=== PATIENT | female | born 1995 | race Caucasian/White ===

== ENCOUNTER 2017-08-03 12:05 | Emergency (ER) | payer OTHER, BC ==
[2017-08-03 12:07] VITALS: BP 131/65; PULSE 102; RESP 20; TEMP 97.5; O2SAT 100
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
[2017-08-03] MEDS ORDERED: IBUP-232 PO (15:20)
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
[2017-08-03 16:27] VITALS: PULSE 84; RESP 16
== END 2017-08-03 16:34 | disposition home or self-care (01) ==
LOC: NEPK 12:05
DX: R07.89 Other chest pain (principal); V47.5XXA Car driver injured in collision with fixed or stationary object in traffic accident, initial encounter; Y92.410 Unspecified street and highway as the place of occurrence of the external cause
CPT/HCPCS: 71020; 99283

== ENCOUNTER 2018-02-21 00:27 | Emergency (ER) | payer BC, OTHER ==
[~2018-02-21] VITALS: Ht 157.5 cm; Wt 71.0 kg
[~2018-02-21 00:27] MED LIST: IBUP-232 PO
[2018-02-21 00:44] VITALS: BP 131/70; PULSE 69; RESP 16; TEMP 97.9; O2SAT 100
[2018-02-21] MEDS ORDERED: PANTOPRAZOLE SODIUM 40 MG VIAL IV PUSH ONE (04:00)
[2018-02-21 04:09] VITALS: RESP 15; O2SAT 100
[2018-02-21 04:26] LABS: AUTOMATED NEUTROPHIL # 5.3 TH/MM3 (1.8-7.7); BASOPHIL # 0.1 TH/MM3 (0-0.2); BASOPHIL % 0.6 % (0.0-2.0); EOSINOPHIL # 0.1 TH/MM3 (0-0.4); EOSINOPHIL % 1.3 % (0.0-4.0); HEMATOCRIT 37.9 % (35.0-46.0); HEMOGLOBIN 12.5 GM/DL (11.6-15.3); LYMPH % 38.2 % (9.0-44.0); LYMPHOCYTE # 3.8 TH/MM3 (1.0-4.8); MEAN CELL VOLUME 86.2 FL (80.0-100.0); MEAN CORPUSCULAR HEMOGLOBIN 28.4 PG (27.0-34.0); MEAN CORPUSCULAR HGB CONC 32.9 % (32.0-36.0); MEAN PLATELET VOLUME 9.7 FL (7.0-11.0); MONO % 6.8 % (0.0-8.0); MONOCYTE # 0.7 TH/MM3 (0-0.9); NEUT % 53.1 % (16.0-70.0); PLATELET COUNT 233 TH/MM3 (150-450); RED CELL DISTRIBUTION WIDTH 13.4 % (11.6-17.2)
[2018-02-21 04:48] LABS: ALBUMIN 3.9 GM/DL (3.4-5.0); AST (GOT) 10 U/L (16-38); BICARBONATE 24.4 MEQ/L (21.0-32.0); BLOOD UREA NITROGEN 12 MG/DL (7-18); CALCIUM 9.1 MG/DL (8.5-10.1); CHLORIDE 107 MEQ/L (98-107); CREATININE 0.67 MG/DL (0.50-1.00); GLOMERULAR FILTRATION RATE 112 ML/MIN (>89); GLUCOSE,RANDOM 92 MG/DL (74-106); SODIUM (NA) 141 MEQ/L (136-145)
[2018-02-21 04:49] LABS: ALT (GPT) 25 U/L (9-42)
[2018-02-21 04:53] LABS: ALKALINE PHOSPHATASE 79 U/L (45-117); TOTAL BILIRUBIN ADULT 0.2 MG/DL (0.2-1.0); TOTAL PROTEIN 7.4 GM/DL (6.4-8.2); TROPONIN I LESS THAN 0.02 NG/ML (0.02-0.05)
--- NOTE | 2018-02-21 04:54 | RADRPT ---
EXAM DATE: 02/21/2018 4:26 AM EDT AGE/SEX: 22 years / Female INDICATIONS: Cough, short of breath. CLINICAL DATA: This is the patient's initial encounter. Patient reports that signs and symptoms have been present for 1 day and indicates a pain score of 5/10. MEDICAL/SURGICAL HISTORY: None. None. COMPARISON: No prior exams available for comparison. FINDINGS: A single AP view of the chest demonstrates the lungs to be symmetrically aerated without evidence of mass, infiltrate or effusion. The cardiomediastinal contours are unremarkable. Osseous structures a re intact. CONCLUSION: No acute cardiopulmonary process. Electronically signed by: Claus Paul MD 02/21/2018 4:53 AM EDT
[2018-02-21] MEDS ORDERED: FAMO20TA2 PO (05:34)
--- NOTE | 2018-02-21 05:35 | PD ---
HPI Chief Complaint: Chest Pain Time Seen by Provider: 03:51 Travel History International Travel<30 days: No Contact w/Intl Traveler<30days: No Traveled to known affect area: No History of Present Illness HPI The patient is a 22 year old female who presents to the [facility] emergency department with a history of chest pain and shortness of breath that she reports began 2 weeks ago. The patient reports that the symptoms have been coming and going. She reports that she felt lightheaded earlier today this prompting the visit. She reports that the chest pain is in the center of her chest. She reports that the character of the pain is a burning sensation. She does report having problems recently with indigestion and heartburn. She is not taking any medication for it at this time. The patient additionally reports that she has had increased stress and worry recently. She denies ever being diagnosed with anxiety in the past. She denies having any family history of psychiatric disorder. She denies having any prior history of heart disease, DVT, or PE. She denies being on any exogenous estrogen or hormones. She denies having any diaphoresis, nausea, radiation of pain. She denies having any vomiting or diarrhea. The patient reports that her last menstrual cycle ended 2 days ago. On review of systems otherwise, the patient reports that she has had an occasional cough that is been nonproductive. She denies having any recent fevers, abdominal pain, urinary symptoms, or neurologic symptoms. [facility] Past Medical History Narrative Medical The patient's past medical history is reportedly none. Immunizations Current: Yes Tetanus Vaccination: Unknown Influenza Vaccination: No ?: Unknown LMP: 01/27/18 Past Surgical History Narrative Surgical The patient's past surgical history is significant for an adenoidectomy Social History Alcohol Use: No Tobacco Use: Yes (Less than a half a pack per day) Substance Use: No Allergies-Medications (Allergen,Severity, Reaction): Coded Allergies: No Known Allergies (Unverified , 02/21/18) Reported Meds & Prescriptions Reported Meds & Active Scripts Active Famotidine 20 Mg Tab 20 Mg PO BID Ibuprofen 600 Mg Tab 600 Mg PO Q8HR PRN Review of Systems Except as stated in HPI: all other systems reviewed are Neg General / Constitutional: No: Fever Eyes: No: Visual changes HENT: No: Headaches, Congestion Cardiovascular: Positive: Chest Pain or Discomfort Respiratory: Positive: Cough, Shortness of Breath Gastrointestinal: Positive: Indigestion, No: Abdominal Pain Genitourinary: No: Dysuria Musculoskeletal: No: Pain Skin: No Rash Neurologic: No: Weakness Psychiatric: No: Depression Endocrine: No: Polydipsia Hematologic/Lymphatic: No: Easy Bruising Physical Exam Narrative General: The patient is a well-developed well-nourished female in no acute distress. Head and Neck exam: Head is normocephalic atraumatic. Eyes: EOMI, pupils are equal round and reactive to light. Nose: Midline septum with pink mucous membranes Mouth: Dentition unremarkable. Moist mucus membranes. Posterior oropharynx is not erythematous. No tonsillar hypertrophy. Uvula midline. Airway patent. Neck: No palpable lymphadenopathy. No nuchal rigidity. No thyromegaly. Cardiovascular: Regular rate and rhythm without murmurs, gallops, or rubs. No pulse deficit to the extremities on simultaneous auscultation and palpation of her radial artery. Lungs: Clear to auscultation bilaterally. No wheezes, rhonchi, or rales. Abdomen: Soft, without tenderness to palpation in all 4 quadrants of the abdomen. No guarding, rebound, or rigidity. Normal bowel sounds are audible. No tenderness on palpation of McBurney's point. Extremities: No clubbing, cyanosis, or edema. 2+ pulses in all 4 extremities. No calf tenderness on palpation. Back: No spinous process tenderness to palpation. No costovertebral angle tenderness to palpation. Neurologic Exam: Grossly nonfocal. Skin Exam: No rash noted. Intact skin that is warm and dry. Data Data Last Documented VS Vital Signs Date Time Temp Pulse Resp B/P (MAP) Pulse Ox O2 Delivery O2 Flow Rate FiO2 02/21/18 04:09 15 100 Room Air 02/21/18 00:44 97.9 69 131/70 (90) Orders Orders Complete Blood Count With Diff (02/21/18 03:56) Comprehensive Metabolic Panel (02/21/18 03:56) Creatine Kinase (Cpk) (02/21/18 03:56) Ckmb (Isoenzyme) Profile (02/21/18 03:56) Troponin I (02/21/18 03:56) Lipase (02/21/18 03:56) Chest, Single Ap (02/21/18 03:56) Iv Access Insert/Monitor (02/21/18 03:56) Ecg Monitoring (02/21/18 03:56) Oximetry (02/21/18 03:56) Ed Urine Pregnancytest Poc (02/21/18 03:56) Pantoprazole Inj (Protonix Inj) (02/21/18 04:00) Labs Laboratory Tests Test 02/21/18 04:05 White Blood Count 10.0 TH/MM3 Red Blood Count 4.40 MIL/MM3 Hemoglobin 12.5 GM/DL Hematocrit 37.9 % Mean Corpuscular Volume 86.2 FL Mean Corpuscular Hemoglobin 28.4 PG Mean Corpuscular Hemoglobin Concent 32.9 % Red Cell Distribution Width 13.4 % Platelet Count 233 TH/MM3 Mean Platelet Volume 9.7 FL Neutrophils (%) (Auto) 53.1 % Lymphocytes (%) (Auto) 38.2 % Monocytes (%) (Auto) 6.8 % Eosinophils (%) (Auto) 1.3 % Basophils (%) (Auto) 0.6 % Neutrophils # (Auto) 5.3 TH/MM3 Lymphocytes # (Auto) 3.8 TH/MM3 Monocytes # (Auto) 0.7 TH/MM3 Eosinophils # (Auto) 0.1 TH/MM3 Basophils # (Auto) 0.1 TH/MM3 CBC Comment DIFF FINAL Differential Comment Blood Urea Nitrogen 12 MG/DL Creatinine 0.67 MG/DL Random Glucose 92 MG/DL Total Protein 7.4 GM/DL Albumin 3.9 GM/DL Calcium Level 9.1 MG/DL Alkaline Phosphatase 79 U/L Aspartate Amino Transf (AST/SGOT) 10 U/L Alanine Aminotransferase (ALT/SGPT) 25 U/L Total Bilirubin 0.2 MG/DL Sodium Level 141 MEQ/L Potassium Level 3.7 MEQ/L Chloride Level 107 MEQ/L Carbon Dioxide Level 24.4 MEQ/L Anion Gap 10 MEQ/L Estimat Glomerular Filtration Rate 112 ML/MIN Total Creatine Kinase 76 U/L Troponin I LESS THAN 0.02 NG/ML Lipase 101 U/L MDM Medical Decision Making Medical Screen Exam Complete: Yes Emergency Medical Condition: Yes Medical Record Reviewed: Yes Differential Diagnosis Acute coronary syndrome, versus pulmonary embolism, versus acid reflux, versus anxiety disorder, versus pneumonia. Narrative Course During the course of the patient's emergency department visit, the patient's history, examination, and differential diagnosis were reviewed with the patient. The patient was placed on a quality assurance monitor body with oximetry and frequent blood pressure monitoring. The patient had IV access obtained and blood work sent for analysis. The patient had an EKG done on arrival. The patient's EKG shows a sinus rhythm with marked sinus arrhythmia, heart rate of 61, QRS duration 90 ms, QTC [address] segment elevation is noted. T waves are inverted in V1. The patient was initially provided Protonix 40 mg IV. The patient's well score is 0 for PE. The patient's Perc rule is 0, therefore no further testing for PE is indicated. The patient's laboratory studies were reviewed and remarkable for: 02/21/18 04:05 Total Protein 7.4, Albumin 3.9, Calcium Level 9.1, Alkaline Phosphatase 79, Aspartate Amino Transf (AST/SGOT) 10 L, Alanine Aminotransferase (ALT/SGPT) 25, Total Bilirubin 0.2. CBC is within normal limits, CMP is unremarkable, cardiac enzymes within normal limits, lipase within normal limits. Radiology studies were reviewed and remarkable for Last Impressions Chest X-Ray 02/21/18 0356 Signed Impressions: CONCLUSION: No acute cardiopulmonary process. The patient symptoms are most consistent with chest pain related to acid reflux symptoms. The patient will be given a prescription for famotidine. She is instructed to follow-up with the [facility] as she does not have a primary care physician. She is encouraged to follow-up in the next 3 days for reexamination. The patient is resting comfortably and feels better, is alert and in no distress. The patient's results and examination findings were discussed with the patient. The repeat examination is unremarkable and benign. The history, exam, diagnostic testing, and current condition do not suggest any significant pathology to warrant further testing, continued ED treatment, admission, or surgical evaluation at this point. The vital signs have been stable. The patient does not have uncontrollable pain, intractable vomiting, or other significant symptoms. The patient's condition is stable and appropriate for discharge. The patient will pursue further outpatient evaluation with a primary care physician or other designated or consulting physician as indicated in the discharge instructions. The patient is instructed to report back to the emergency department immediately for reexamination in the mean time if she develops any new or worsening signs or symptoms. The patient expressed understanding and was agreeable with this plan. Diagnosis Primary Impression: Chest pain Qualified Codes: R07.9 - Chest pain, unspecified Additional Impression: Gastroesophageal reflux Qualified Codes: K21.9 - Gastro-esophageal reflux disease without esophagitis Referrals: [facility] 3 days Patient Instructions: Chest Pain (ED), Gastroesophageal Reflux Disease (ED), General Instructions Med/Other Pt SpecificInfo: Prescription(s) given Scripts Famotidine (Famotidine) 20 Mg Tab 20 MG PO BID, #60 TAB 0 Refills Prov: Stacy Trejo MD 02/21/18 Disposition: DISCHARGE HOME Condition: Stable Stacy Trejo MD Feb 21, 2018 05:35
--- NOTE | 2018-02-21 13:35 | EKG ---
Date Performed: 02/21/2018 Time Performed: 00:51:49 PTAGE: 22 years EKG: Sinus rhythm WITH MARKED SINUS ARRHYTHMIA BORDERLINE ECG NO PREVIOUS TRACING DOCTOR: Favio Burt Interpretating Date/Time 02/21/2018 13:33:47
== END 2018-02-21 05:50 | disposition home or self-care (01) ==
LOC: NEPC 00:27
DX: R07.9 Chest pain, unspecified (principal); K21.9 Gastro-esophageal reflux disease without esophagitis; R06.02 Shortness of breath; R42 Dizziness and giddiness; R05 Cough; R94.31 Abnormal electrocardiogram [ECG] [EKG]; Z72.0 Tobacco use
CPT/HCPCS: 71045; 80053; 82550; 83690; 84484; 84703; 85025; 93005; 96374; 99285; C9113